=== PATIENT | female | born 1960 | race African-American/Black ===

== ENCOUNTER 2018-04-30 16:25 | Emergency (ER) | payer OTHER ==
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
[2018-04-30 17:19] VITALS: BP 171/96; PULSE 69; TEMP 98.6; BMI 28.5
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
[2018-04-30] MEDS ORDERED: ACETAMINOPHEN 325 MG TABLET (FP) PO ONE (20:23)
[2018-04-30] MEDS ORDERED: ACETAMINOPHEN 325 MG TABLET (FP) ONE (20:42)
== END 2018-04-30 20:49 | disposition home or self-care (01) ==
LOC: JER 16:25
DX: S79.811A Other specified injuries of right hip, initial encounter (principal); S69.81XA Other specified injuries of right wrist, hand and finger(s), initial encounter; V03.10XA Pedestrian on foot injured in collision with car, pick-up truck or van in traffic accident, initial encounter; Y92.414 Local residential or business street as the place of occurrence of the external cause; Y93.89 Activity, other specified; Y99.8 Other external cause status; I11.0 Hypertensive heart disease with heart failure; I50.9 Heart failure, unspecified; E11.9 Type 2 diabetes mellitus without complications
CPT/HCPCS: 73130-TC-RT-FY; 73523-TC-FY; 99281-25

== ENCOUNTER 2021-06-02 12:16 | Inpatient (IN) | payer OTHER ==
[2021-06-02] MEDS ORDERED: SODIUM CHLORIDE 0.9% 500 ML INFUS.BAG IV ONE (12:45)
[2021-06-02 14:43] LABS: VENOUS BASE EXCESS -9.5 mmol/L (-2-2); VENOUS O2 SATURATION 42.5 % (70-80); VENOUS PCO2 47.7 mmHg (38-52); VENOUS PH 7.2 (7.310-7.410)
[2021-06-02 14:45] LABS: HEMATOCRIT 29.5 % (32.4-45.2); HEMOGLOBIN 9.3 GM/dL (10.7-15.3); MCH 29.6 pg (25.7-33.7); MCHC 31.4 g/dl (32.0-36.0); MEAN CELL VOLUME 94.1 fl (80-96); MEAN PLT VOLUME 8.9 fl (7.5-11.1); PLATELET COUNT 491 10^3/uL (134-434); RBC 3.14 M/mm3 (3.60-5.2); RDW 12.9 % (11.6-15.6); WHITE BLOOD COUNT 22.2 K/mm3 (4.0-10.0)
[2021-06-02] MEDS ORDERED: LACTATED RINGERS SOLUTION 1000 ML INFUS.BAG IV ONE ×2 (14:47→15:15)
[2021-06-02 14:50] LABS: INR 0.98 (0.83-1.09); PROTHROMBIN TIME (PATIENT) 11.5 SEC (9.7-13.0)
[2021-06-02 15:04] LABS: CHLORIDE 74 mmol/L (98-107)
[2021-06-02 15:06] LABS: CALCIUM 9.3 mg/dL (8.5-10.1)
[2021-06-02 15:07] LABS: ALBUMIN 2.6 g/dl (3.4-5.0); CO2 18 mmol/L (21-32); MAGNESIUM 2.9 mg/dL (1.8-2.4)
[2021-06-02 15:10] LABS: CREATININE 5.2 mg/dL (0.55-1.3); SGOT/AST 38 U/L (15-37); SGPT/ALT 26 U/L (13-61)
[2021-06-02 15:11] LABS: BILIRUBIN,TOTAL 0.5 mg/dL (0.2-1); TOT PROT 7.5 g/dl (6.4-8.2)
[2021-06-02 15:12] LABS: ALK PHOS 216 U/L (45-117); LACTIC ACID 2.3 mmol/L (0.4-2.0)
[2021-06-02 15:15] LABS: ANISOCYTOSIS 0; MACROCYTOSIS 0; PLATELET ESTIMATE NORMAL
[2021-06-02 16:29] LABS: ANION GAP 24 MMOL/L (8-16); BLOOD UREA NITROGEN 132.8 mg/dL (7-18); GLUCOSE,RANDOM 1296 mg/dL (74-106); SODIUM 116 mmol/L (136-145)
[2021-06-02] MEDS ORDERED: CALCIUM CHLORIDE 1 GM/10 ML *DISP.SYRIN ONE (17:56)
[2021-06-02] MEDS ORDERED: NOREPINEPHRINE BITARTRATE 4 MG/4 ML ML IV ONE (18:49)
[2021-06-02] MEDS ORDERED: NOREPINEPHRINE D5W PREMIX 16,000 MCG/500 ML BAG IVPB SCH ×2 (19:00→19:10)
[2021-06-02] MEDS: SODIUM BICARBONATE 8.4% - 150 MEQ in DEXTROSE 5%-WATER - 950 ML IV SCH (19:19)
[2021-06-02] MEDS ORDERED: INSULIN REGULAR HUMAN 100 UNITS/ML *VIAL* (FOR IVP) IVPUSH ONE (19:42)
[2021-06-02] MEDS ORDERED: INSULIN REGULAR 100 UNITS in SODIUM CHLORIDE 99 ML IVPB SCH ×2 (19:45→20:00)
[2021-06-02] MEDS ORDERED: DEXTROSE 50%-WATER - 25 GM/50 ML VIAL IVPUSH PRN (20:00)
[2021-06-02] MEDS ORDERED: MIDAZOLAM IN 0.9 % SOD.CHLORID 100 MG/100 ML PLAST..BAG IVPB SCH (20:00)
[2021-06-02] MEDS ORDERED: VANCOMYCIN 1 GM in D5W (PRE-DOCKED) 1,000 MG/250 ML IVPB ONE (20:02)
[2021-06-02] MEDS ORDERED: FENTANYL NS IVPB 500 MCG/100 ML BAG IVPB SCH (20:15)
[2021-06-02] MEDS ORDERED: PIPERACILLIN/TAZOB 3.375 GM 3.375 GM in DEXTROSE 5%-WATER - 50 ML IVPB SCH (20:15)
[2021-06-02] MEDS ORDERED: PIPERACILLIN/TAZOB 3.375 GM 3.375 GM/50 ML BAG IVPB ONE (20:21)
[2021-06-02] MEDS ORDERED: VASOPRESSIN 40 UNITS/100 ML BAG IV SCH ×4 (20:30→21:00)
[2021-06-02] MEDS ORDERED: PIPERACILLIN/TAZOB 3.375 GM 3.375 GM in DEXTROSE 5%-WATER - 50 ML IVPB ONE (20:34)
[2021-06-02] MEDS ORDERED: SODIUM CHLORIDE 1,000 ML IV STA (20:41)
[2021-06-02] MEDS ORDERED: VASOPRESSIN 20 UNITS/ML VIAL IV ONE (20:45)
[2021-06-02] MEDS ORDERED: EPINEPHrine 1:10,000 (P-F SYR) 1 MG/10 ML DISP.SYRIN IVPUSH ONE (21:13)
[2021-06-02 21:36] LABS: ARTERIAL BLD GAS O2 SATURATION 98.6 % (95-98); ARTERIAL BLOOD GAS BASE EXCESS -25.3 mmol/L (-2-2); ARTERIAL BLOOD GAS PO2 224.8 mmHg (80-100)
[2021-06-02 21:39] LABS: ALLENS TEST POSITIVE; VENT MODE A/C; VENT RATE 20
[2021-06-02 21:44] LABS: ARTERIAL BLOOD GAS pH 6.851 (7.350-7.450)
[2021-06-02] MEDS ORDERED: SODIUM BICARBONATE 8.4% 50 MEQ/50 ML VIAL IVPB ONE (22:00)
[2021-06-02] MEDS ORDERED: CHLORHEXIDINE GLUCONATE 4% CLEANSER FOR DECOLONIZATION TP SCH (22:00)
[2021-06-02] MEDS ORDERED: SODIUM CHLORIDE 1,000 ML IV SCH (22:15)
[2021-06-02] MEDS ORDERED: SODIUM BICARBONATE 8.4% - 50 ML ONE (22:21)
[2021-06-02 22:56] VITALS: BMI 23.0
[2021-06-02] MEDS ORDERED: PIPERACILLIN/TAZOBACTAM 3.375 GM VIAL IVPB ONE (23:35)
[2021-06-02] MEDS ORDERED: DEXTROSE 5%-WATER - 50 ML IVPB ONE (23:36)
[2021-06-02] MEDS: HYDROCORTISONE SOD SUCCINATE 100 MG/2 ML VIAL IVPUSH SCH (23:52)
[2021-06-02] MEDS: FLUDROCORTISONE ACETATE 0.1 MG TABLET (FP) PO SCH (23:53)
[2021-06-02] MEDS: MUPIROCIN 2% TOPICAL OINTMENT FOR DECOLONIZATION NS SCH (23:58)
[2021-06-02] MEDS: SODIUM CHLORIDE 1,000 ML IV SCH (23:59)
[2021-06-03] MEDS: PHENYLEPHRINE NS PREMIX 50,000 MCG/500 ML BAG IVPB SCH ×2 (00:14→08:42)
[2021-06-03 00:16] LABS: ARTERIAL BLD GAS O2 SATURATION 84.5 % (95-98); ARTERIAL BLOOD GAS PO2 94.1 mmHg (80-100)
[2021-06-03 00:17] LABS: ALLENS TEST POSITIVE
[2021-06-03 00:18] LABS: VENT MODE A/C; VENT RATE 20
[2021-06-03 00:19] LABS: ARTERIAL BLOOD GAS pH 6.722 (7.350-7.450)
[2021-06-03] MEDS ORDERED: EPINEPHrine 1:10,000 (P-F SYR) 1 MG/10 ML DISP.SYRIN ONE (00:27)
[2021-06-03] MEDS ORDERED: SODIUM BICARBONATE 8.4% - 50 ML ONE (00:27)
[2021-06-03] MEDS ORDERED: ATROPINE SULFATE 1 MG/10 ML DISP.SYRIN ONE (00:27)
[2021-06-03] MEDS ORDERED: SODIUM BICARBONATE 8.4% 50 MEQ/50 ML VIAL ONE ×2 (00:44→02:07)
[2021-06-03 01:11] LABS: LACTIC ACID 19.3 mmol/L (0.4-2.0)
[2021-06-03] MEDS: PIPERACILLIN/TAZOB 2.25 GM 2.25 GM in DEXTROSE 5%-WATER - 50 ML IVPB SCH ×2 (02:26→09:56)
[2021-06-03 02:33] LABS: HEMATOCRIT 23.1 % (32.4-45.2); HEMOGLOBIN 7.1 GM/dL (10.7-15.3); MCH 29.9 pg (25.7-33.7); MCHC 30.7 g/dl (32.0-36.0); MEAN CELL VOLUME 97.4 fl (80-96); MEAN PLT VOLUME 7.1 fl (7.5-11.1); PLATELET COUNT 184 10^3/uL (134-434); RBC 2.37 M/mm3 (3.60-5.2); RDW 13.5 % (11.6-15.6)
[2021-06-03 02:41] LABS: WHITE BLOOD COUNT 4.1 K/mm3 (4.0-10.0)
[2021-06-03 02:53] LABS: CHLORIDE 96 mmol/L (98-107)
[2021-06-03 02:55] LABS: CALCIUM 9.9 mg/dL (8.5-10.1); CO2 11 mmol/L (21-32)
[2021-06-03 02:58] LABS: CREATININE 5.3 mg/dL (0.55-1.3)
[2021-06-03 03:00] LABS: BILIRUBIN,TOTAL 0.6 mg/dL (0.2-1)
[2021-06-03 03:02] LABS: ARTERIAL BLD GAS O2 SATURATION 79.7 % (95-98); ARTERIAL BLOOD GAS BASE EXCESS -25.7 mmol/L (-2-2); ARTERIAL BLOOD GAS PO2 76.1 mmHg (80-100)
[2021-06-03 03:07] LABS: URINE APPEARANCE CLOUDY; URINE BILIRUBIN NEGATIVE (NEGATIVE); URINE COLOR YELLOW; URINE GLUCOSE (UA) 3+ (NEGATIVE); URINE KETONE NEGATIVE (NEGATIVE); URINE LEUK ESTERASE 1+ (NEGATIVE); URINE NITRITE NEGATIVE (NEGATIVE); URINE PROTEIN 2+ (NEGATIVE); URINE UROBILINOGEN 0.2 mg/dL (0.2-1.0)
[2021-06-03 03:13] LABS: ALLENS TEST POSITIVE; VENT MODE A/C
[2021-06-03 03:14] LABS: ARTERIAL BLOOD GAS pH 6.829 (7.350-7.450); VENT RATE 20
[2021-06-03] MEDS ORDERED: SODIUM CHLORIDE 1,000 ML with POTASSIUM CHLORIDE 30 MEQ IV SCH (03:15)
[2021-06-03] MEDS ORDERED: SODIUM CHLORIDE 1,000 ML with POTASSIUM CHLORIDE 20 MEQ IV SCH (03:19)
[2021-06-03] MEDS: HYDROCORTISONE SOD SUCCINATE 100 MG/2 ML VIAL IVPUSH SCH ×2 (03:26→09:55)
[2021-06-03] MEDS: SODIUM BICARBONATE 8.4% - 150 MEQ in DEXTROSE 5%-WATER - 950 ML IV SCH ×2 (03:26→12:43)
[2021-06-03 03:50] LABS: ALBUMIN 0.9 g/dl (3.4-5.0); ALK PHOS 344 U/L (45-117); ANION GAP 34 MMOL/L (8-16); BLOOD UREA NITROGEN 117.5 mg/dL (7-18); GLUCOSE,RANDOM 800 mg/dL (74-106); SGOT/AST 5364 U/L (15-37); SGPT/ALT 1473 U/L (13-61); SODIUM 141 mmol/L (136-145); TOT PROT 3.5 g/dl (6.4-8.2)
[2021-06-03 05:46] LABS: CHLORIDE 98 mmol/L (98-107)
[2021-06-03 05:48] LABS: CO2 9 mmol/L (21-32)
[2021-06-03 05:51] LABS: CREATININE 4.8 mg/dL (0.55-1.3)
[2021-06-03 06:00] LABS: ANION GAP 32 MMOL/L (8-16); BLOOD UREA NITROGEN 107.9 mg/dL (7-18); SODIUM 139 mmol/L (136-145)
[2021-06-03] MEDS ORDERED: PIPERACILLIN/TAZOB 2.25 GM 2.25 GM in DEXTROSE 5%-WATER - 50 ML IVPB SCH (06:00)
[2021-06-03] MEDS ORDERED: HEPARIN NA (PORCINE) 5,000 UNITS/ML 1ML VIAL SQ SCH (06:00)
[2021-06-03 06:15] LABS: GLUCOSE,RANDOM 774 mg/dL (74-106)
[2021-06-03 06:22] LABS: EPI CELLS 5.3 /uL (0-25.1); HYALINE CASTS 2.92 /uL (0-3.1); URINE RBC 11.1 /uL (0-23.9); URINE WBC 481.2 /uL (0-25.8)
[2021-06-03 06:23] LABS: URINE BACTERIA 759.4 /uL (0-1359)
[2021-06-03 06:34] LABS: ANISOCYTOSIS 1+; MACROCYTOSIS 1+; PLATELET ESTIMATE NORMAL
[2021-06-03 07:28] LABS: HEMATOCRIT 22.4 % (32.4-45.2); MCH 30.1 pg (25.7-33.7); MCHC 30.2 g/dl (32.0-36.0); MEAN CELL VOLUME 99.6 fl (80-96); MEAN PLT VOLUME 7.2 fl (7.5-11.1); PLATELET COUNT 179 10^3/uL (134-434); RBC 2.25 M/mm3 (3.60-5.2); RDW 13.8 % (11.6-15.6); WHITE BLOOD COUNT 3.7 K/mm3 (4.0-10.0)
[2021-06-03 07:30] LABS: HEMOGLOBIN 6.8 GM/dL (10.7-15.3)
[2021-06-03 07:43] LABS: CHLORIDE 98 mmol/L (98-107); SODIUM 139 mmol/L (136-145)
[2021-06-03 07:47] LABS: CALCIUM 9.2 mg/dL (8.5-10.1)
[2021-06-03 07:48] LABS: ALBUMIN 0.8 g/dl (3.4-5.0); ANION GAP 31 MMOL/L (8-16); CO2 10 mmol/L (21-32); LIPASE 153 U/L (73-393); MAGNESIUM 2.3 mg/dL (1.8-2.4)
[2021-06-03 07:50] LABS: CREATININE 4.7 mg/dL (0.55-1.3)
[2021-06-03 07:52] LABS: BILIRUBIN,TOTAL 0.7 mg/dL (0.2-1); TOT PROT 3.2 g/dl (6.4-8.2)
[2021-06-03 08:00] LABS: N-TERMINAL BNP 9211.3 pg/ml (5-125)
[2021-06-03] MEDS: SODIUM CHLORIDE 1,000 ML IV SCH (08:00)
[2021-06-03 08:06] LABS: ALK PHOS 287 U/L (45-117); BLOOD UREA NITROGEN 110.4 mg/dL (7-18)
[2021-06-03 08:42] LABS: GLUCOSE,RANDOM > 500 mg/dL (74-106); SGOT/AST 1419 U/L (15-37); SGPT/ALT 5671 U/L (13-61)
[2021-06-03 08:49] LABS: ARTERIAL BLD GAS O2 SATURATION 88.4 % (95-98); ARTERIAL BLOOD GAS BASE EXCESS -28.5 mmol/L (-2-2); ARTERIAL BLOOD GAS PO2 103.3 mmHg (80-100)
[2021-06-03 08:50] LABS: ALLENS TEST POSITIVE
[2021-06-03 08:51] LABS: PT'S TEMP 93.2; VENT MODE N/C; VENT RATE 22
[2021-06-03 08:52] LABS: ARTERIAL BLOOD GAS pH 6.743 (7.350-7.450)
[2021-06-03] MEDS ORDERED: PT OWN MED DRAWER 7, Y5N ONE (09:53)
[2021-06-03] MEDS ORDERED: PIPERACILLIN/TAZOBACTAM 2.25 GM VIAL IVPB ONE (09:53)
[2021-06-03] MEDS ORDERED: DEXTROSE 5%-WATER - 50 ML IVPB ONE (09:53)
[2021-06-03] MEDS: FLUDROCORTISONE ACETATE 0.1 MG TABLET (FP) PO SCH (09:55)
[2021-06-03] MEDS ORDERED: PANTOPRAZOLE SODIUM 40 MG VIAL IVPUSH SCH (10:00)
[2021-06-03] MEDS ORDERED: ENOXAPARIN NA (PORCINE) 40 MG/0.4 ML DISP.SYRIN SQ SCH (10:00)
[2021-06-03] MEDS ORDERED: VASOPRESSIN 20 UNITS/ML VIAL IV ONE (10:01)
[2021-06-03 10:26] VITALS: BP 85/51; PULSE 71; TEMP 93.6
[2021-06-03] MEDS ORDERED: VANCOMYCIN/WATER 1,250 MG/250 ML BAG IVPB SCH (11:00)
[2021-06-03 11:11] LABS: ANISOCYTOSIS 1+; MACROCYTOSIS 1+; PLATELET ESTIMATE NORMAL; TEAR DROP CELLS 1+
[2021-06-03 11:14] LABS: CHLORIDE 106 mmol/L (98-107); SODIUM 143 mmol/L (136-145)
[2021-06-03 11:15] LABS: CALCIUM 8.1 mg/dL (8.5-10.1)
[2021-06-03 11:16] LABS: ANION GAP 29 MMOL/L (8-16); BLOOD UREA NITROGEN 98.9 mg/dL (7-18); CO2 8 mmol/L (21-32)
[2021-06-03 11:19] LABS: CREATININE 4.3 mg/dL (0.55-1.3)
[2021-06-03 11:40] LABS: GLUCOSE,RANDOM 578 mg/dL (74-106)
[2021-06-03 11:44] LABS: LACTIC ACID 24.7 mmol/L (0.4-2.0)
[2021-06-03] MEDS: MUPIROCIN 2% TOPICAL OINTMENT FOR DECOLONIZATION NS SCH (12:43)
== END 2021-06-03 12:02 | disposition expired | DRG 871 ==
LOC: JER 12:16 → JERBED 21:57 → JICU 22:01
PROVIDERS: ADMIT Internal Medicine; ATTEND Internal Medicine
PROC: 5A1935Z Respiratory Ventilation, Less than 24 Consecutive Hours (ICD-10-PCS; principal; 2021-06-02)
PROC: 5A12012 Performance of Cardiac Output, Single, Manual (ICD-10-PCS; 2021-06-02)
PROC: 0BH17EZ Insertion of Endotracheal Airway into Trachea, Via Natural or Artificial Opening (ICD-10-PCS; 2021-06-02)
DX: A41.9 Sepsis, unspecified organism (principal); J96.01 Acute respiratory failure with hypoxia; E11.10 Type 2 diabetes mellitus with ketoacidosis without coma; R65.21 Severe sepsis with septic shock; K72.00 Acute and subacute hepatic failure without coma; I13.0 Hypertensive heart and chronic kidney disease with heart failure and stage 1 through stage 4 chronic kidney disease, or unspecified chronic kidney disease; I96 Gangrene, not elsewhere classified; N39.0 Urinary tract infection, site not specified; N17.9 Acute kidney failure, unspecified; K83.09 Other cholangitis; I24.8 Other forms of acute ischemic heart disease; E87.2 Acidosis; I46.9 Cardiac arrest, cause unspecified; N18.9 Chronic kidney disease, unspecified; R74.01 Elevation of levels of liver transaminase levels
CPT/HCPCS: 36415; 36600; 70450-TC; 71045-TC-FY; 73610-TC-LT-FY; 73630-TC-LT; 80048; 80053; 81003; 82010; 82140; 82550; 82553; 82803; 82962; 83605; 83690; 83735; 83880; 84100; 84436; 84443; 84484; 85025; 85610; 85651; 85730; 86140; 86850; 86900; 86901; 86922; 87040; 87086; 93005; 93010; 93306-TC; 94002; 99291; C9803; G0480; J1644; J3490; U0003; U0005